=== PATIENT | female | born 1970 | race Caucasian/White ===

== ENCOUNTER 2019-11-08 07:18 | Emergency (ER) | payer OTHER, BC ==
[~2019-11-08] VITALS: Ht 154.9 cm; Wt 95.3 kg
[2019-11-08 07:28] VITALS: Ht 154.9 cm; Wt 95.3 kg
[2019-11-08 09:20] VITALS: BP 125/67
== END 2019-11-08 10:14 | disposition home or self-care (01) ==
LOC: ED 07:18
DX: S63.91XA Sprain of unspecified part of right wrist and hand, initial encounter (principal); T22.111A Burn of first degree of right forearm, initial encounter; S20.212A Contusion of left front wall of thorax, initial encounter; R51 Headache; W22.10XA Striking against or struck by unspecified automobile airbag, initial encounter; Y93.89 Activity, other specified; Y92.488 Other paved roadways as the place of occurrence of the external cause; Y99.8 Other external cause status; Z88.0 Allergy status to penicillin; Z88.6 Allergy status to analgesic agent
CPT/HCPCS: A4570